=== PATIENT | female | born 1995 | race Caucasian/White ===

== ENCOUNTER 2020-11-04 00:12 | Emergency (ER) | payer MEDICAID ==
[~2020-11-04] VITALS: Ht 157.5 cm; Wt 64.6 kg
[2020-11-04 00:53] LABS: BASOPHIL % 1.2 % (0-2); PLATELET COUNT 261 x10^3mcL (130-400); RED CELL DISTRIBUTION WIDTH 13.8 % (11.5-14.5)
[2020-11-04 01:02] LABS: CALCIUM 9.6 mg/dL (8.5-10.1); CARBON DIOXIDE 27.3 mmol/L (21-32); CHLORIDE SERUM 104 mmol/L (98-107); CREATININE SERUM 1.1 mg/dL (0.6-1.0); GFR1 > 60 mL/min; GLUCOSE SERUM 100 mg/dL (74-106); POTASSIUM SERUM 4.1 mmol/L (3.5-5.1); SODIUM SERUM 140 mmol/L (136-145)
[2020-11-04 01:07] LABS: ALBUMIN 4.4 g/dL (3.4-5.0); ALKALINE PHOSPHATASE 69 U/L (46-116); ALT/SGPT 21 U/L (14-59); AST/SGOT 10 U/L (15-37); BILIRUBIN TOTAL 0.17 mg/dL (0.20-1.00)
[2020-11-04 01:38] LABS: TOTAL PROTEIN, SERUM 8.5 g/dL (6.4-8.2)
[2020-11-04 04:50] VITALS: BP 120/76
== END 2020-11-04 04:50 | disposition home or self-care (01) ==
LOC: ED 00:12
DX: N39.0 Urinary tract infection, site not specified (principal)

== ENCOUNTER 2020-11-22 16:33 | Emergency (ER) | payer MEDICAID ==
[~2020-11-22] VITALS: Ht 157.5 cm; Wt 64.4 kg
[2020-11-22 17:45] VITALS: Ht 157.5 cm; Wt 64.4 kg
[2020-11-22 21:00] VITALS: BP 115/71
[2020-11-22 21:54] LABS: microscopic required? NO
[2020-11-22 22:12] LABS: UA SPECIFIC GRAVITY >=1.030 (1.005-1.035); urine erythrocyte NEGATIVE (NEGATIVE)
== END 2020-11-22 21:00 | disposition home or self-care (01) ==
LOC: ED 16:33
PROVIDERS: Student in an Organized Health Care Education/Training Program
DX: R10.2 Pelvic and perineal pain (principal); R35.0 Frequency of micturition; R20.0 Anesthesia of skin; R10.30 Lower abdominal pain, unspecified
CPT/HCPCS: 87491; 87591

== ENCOUNTER 2021-02-10 22:48 | Emergency (ER) | payer MEDICAID ==
[~2021-02-10] VITALS: Ht 162.6 cm; Wt 62.6 kg
[2021-02-10 22:55] VITALS: Ht 162.6 cm; Wt 62.6 kg
[2021-02-11] MEDS ORDERED: HYDROXYZINE HYD25 MG PO (03:00)
[2021-02-11 03:15] VITALS: BP 102/66
== END 2021-02-11 03:15 | disposition home or self-care (01) ==
LOC: ED 22:48
DX: F41.9 Anxiety disorder, unspecified (principal)